=== PATIENT | female | born 1985 | race Caucasian/White ===

== ENCOUNTER 2021-06-13 22:41 | Emergency (ER) | payer OTHER ==
[~2021-06-13] VITALS: Ht 167.6 cm; Wt 117.9 kg
[~2021-06-13 22:41] MED LIST: IRON325 MG PO; PRENATAL 19 TA1 EACH PO; PROTONIX40 MG PO; ZANTAC300 MG PO
== END 2021-06-14 01:37 | disposition home or self-care (01) ==
LOC: ER 22:41
DX: R21 Rash and other nonspecific skin eruption (principal)

== ENCOUNTER 2021-09-09 08:20 | Inpatient (IN) | payer OTHER ==
[~2021-09-09] VITALS: Ht 167.6 cm; Wt 126.1 kg
[2021-09-09] MEDS ORDERED: TUMS200 MG (09:18)
[2021-09-09] MEDS ORDERED: INTEGRA PLUS C1 EACH (13:24)
[2021-09-09] MEDS ORDERED: CETIRIZINE HCL10 MG (13:24)
== END 2021-09-12 12:09 | disposition home or self-care (01) | DRG 807 ==
LOC: LDR 08:20 → SURG-SUITE 08:20 → OB/GYN 09-17 15:44
PROVIDERS: ADMIT Obstetrics & Gynecology; ATTEND Obstetrics & Gynecology
PROC: 10E0XZZ Delivery of Products of Conception, External Approach (ICD-10-PCS; principal; 2021-09-09)
PROC: 0KQM0ZZ Repair Perineum Muscle, Open Approach (ICD-10-PCS; 2021-09-09)
PROC: 4A1HXCZ Monitoring of Products of Conception, Cardiac Rate, External Approach (ICD-10-PCS; 2021-09-09)
DX: O70.1 Second degree perineal laceration during delivery (principal); Z37.0 Single live birth; Z3A.38 38 weeks gestation of pregnancy; Z20.822 Contact with and (suspected) exposure to COVID-19